=== PATIENT | female | born 1975 | race American Indian/Alaskan Native ===

== ENCOUNTER 2019-07-22 19:19 | Emergency (ER) | payer SELFPAY ==
[2019-07-22 19:55] VITALS: BP 111/64
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
== END 2019-07-22 21:50 | disposition left against medical advice (07) ==
LOC: ED 19:19
DX: M54.9 Dorsalgia, unspecified (principal)
CPT/HCPCS: 99281